=== PATIENT | female | born 1960 | race Caucasian/White ===

== ENCOUNTER 2020-07-03 08:42 | Day surgery (SDC) | payer OTHER, SELFPAY ==
[~2020-07-03] VITALS: Ht 160 cm; Wt 53.5 kg
[2020-07-03] MEDS ORDERED: fentaNYL citrate 0.05 MG/ML VIAL ONE (12:06)
[2020-07-03] MEDS ORDERED: LIDOCAINE 2% 100 MG/5 ML UJET TP ONE ×2 (12:06→12:50)
[2020-07-03] MEDS ORDERED: fentaNYL citrate 0.05 MG/ML VIAL IVP ONE (12:50)
== END 2020-07-03 13:15 | disposition home or self-care (01) ==
LOC: MDS 08:42 → MMU 08:45 → MDS 13:15
PROVIDERS: ATTEND Internal Medicine Gastroenterology
DX: Z12.11 Encounter for screening for malignant neoplasm of colon (principal); E78.5 Hyperlipidemia, unspecified; Z86.010 Personal history of colon polyps
CPT/HCPCS: 45378; J3010; U0003